=== PATIENT | male | born 2000 | race Native Hawaiian/Other Pacific Islander ===

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

== ENCOUNTER 2019-07-08 09:50 | Outpatient (CLI) | payer BC ==
[2019-07-08 10:22] LABS: PLATELET COUNT 243 K/uL (142-355)
[2019-07-08 10:41] LABS: POTASSIUM 4.2 mmol/L (3.6-5.2)
== END 2019-07-08 23:05 | disposition home or self-care (01) ==
LOC: LABW 09:50
PROVIDERS: Registered Nurse
DX: R53.83 Other fatigue (principal)
CPT/HCPCS: 36415; 80053; 81000; 82306; 82607; 82746; 83735; 84402; 84403; 84439; 84443; 85027

== ENCOUNTER 2020-01-03 01:23 | Emergency (ER) | payer BC ==
[~2020-01-03] VITALS: Ht 188 cm; Wt 113.4 kg
[2020-01-03 03:27] VITALS: BP 141/81; TEMP 98.5
== END 2020-01-03 03:27 | disposition home or self-care (01) ==
LOC: ED 01:23
DX: G43.909 Migraine, unspecified, not intractable, without status migrainosus (principal)
CPT/HCPCS: 36415; 96360; 96375; 99284; J1170; J2405

== ENCOUNTER 2022-08-29 07:42 | Outpatient (CLI) | payer BC | END 2022-08-29 18:56 | disposition home or self-care (01) | LOC: CT 07:42 | PROVIDERS: ATTEND Nurse Practitioner Family | DX: G43.909 Migraine, unspecified, not intractable, without status migrainosus (principal) | CPT/HCPCS: Q9963 ==